=== PATIENT | male | born 1985 | race Caucasian/White ===

== ENCOUNTER 2021-04-26 17:29 | Emergency (ER) | payer SELFPAY ==
[2021-04-26 18:38] LABS: Urine Blood Trace-intact (Negative); Urine Glucose Negative (Negative); Urine Protein Negative (Negative)
[2021-04-26 18:49] LABS: Urine Bacteria <20 /HPF (NONE SEEN); Urine RBC <5 /HPF (NONE SEEN)
[2021-04-26 18:50] LABS: Urine Mucus 1+ /HPF (NONE SEEN)
[2021-04-26 19:00] LABS: Barbiturates NEGATIVE (NEGATIVE); Benzodiazepines NEGATIVE (NEGATIVE); Cocaine NEGATIVE (NEGATIVE); METHAMPHETAM POSITIVE (NEGATIVE); Methadone NEGATIVE (NEGATIVE); Opiates NEGATIVE (NEGATIVE); Phencyclidine NEGATIVE (NEGATIVE); THC Cannibis NEGATIVE (NEGATIVE)
[2021-04-26 19:01] LABS: Absolute Lymphocytes (CBC) 1.9 K/uL (0.7-4.9); Basophils % 0.7 % (0-1.3); Hematocrit 44.6 % (39.6-49.0); MPV 7.5 fL (7.6-11.3); RBC Red Blood Cell Count 4.63 M/uL (4.33-5.43)
--- NOTE | 2021-04-26 19:02 | RAD REPORT ---
EXAM DESCRIPTION: RAD - Chest Single View - 04/26/2021 6:34 pm CLINICAL HISTORY: COUGH COMPARISON: None TECHNIQUE: AP portable chest image was obtained 04/26/2021 6:34 pm . FINDINGS: Lungs are clear. Heart and vasculature are normal. No measurable pleural effusion and no p neumothorax. No acute bony abnormality seen. No acute aortic findings suspected. IMPRESSION: No acute cardiopulmonary process.
[2021-04-26 19:20] LABS: ALT/SGPT 66 U/L (12-78); AST/SGOT 29 U/L (15-37); Albumin 3.9 g/dL (3.4-5.0); Alkaline Phosphatase 70 U/L (45-117); BUN Blood Urea Nitrogen 10 mg/dL (7-18); Bicarbonate 28 mmol/L (21-32); Bilirubin Direct < 0.1 mg/dL (0-0.2); Bilirubin Total 0.3 mg/dL (0.2-1.0); Glucose Level 98 mg/dL (74-106); Potassium 3.9 mmol/L (3.5-5.1); Protein, Total 7.2 g/dL (6.4-8.2); Sodium Level 141 mmol/L (136-145)
[2021-04-26] MEDS ORDERED: CEFTRIAXONE 1000 MG/VIAL ONE (19:35)
[2021-04-26 19:48] LABS: Protime INR 0.91
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
[2021-04-26 20:07] VITALS: BP 120/80; TEMP 97.2; O2SAT 97
--- NOTE | 2021-04-27 16:44 | EKG ---
Test Date: 2021-04-26 Test Time: 18:38:13 [employer] Analyst: CASTRO MEASUREMENT RESULTS: Intervals: Rate: 75 CO: 146 QRSD: 88 QT: 370 QTc: 413 [place]: P: 70 CO: 146 QRS: 76 T: 58 INTERPRETIVE STATEMENTS: Normal sinus rhythm Normal ECG No previous ECG available for comparison Electronically Signed On 04-27-21 16:42:49 CDT by Kasi Jaimes
== END 2021-04-26 20:01 | disposition home or self-care (01) ==
LOC: ER 17:29
DX: N39.0 Urinary tract infection, site not specified (principal); J06.9 Acute upper respiratory infection, unspecified; F15.10 Other stimulant abuse, uncomplicated; F17.210 Nicotine dependence, cigarettes, uncomplicated; Z20.822 Contact with and (suspected) exposure to COVID-19
CPT/HCPCS: 36415; 71045; 80048; 80076; 80307; 80320; 80329; 81003; 81015; 85025; 85610; 85730; 87086; 87088; 93005; 96374; 99284; U0003

== ENCOUNTER 2021-04-26 20:46 | Emergency (ER) | payer SELFPAY ==
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
--- NOTE | 2021-04-26 22:22 | EDPHYS ---
Physician Documentation [facility] Name: Elvin Cox Age: 35 yrs Sex: Male : 1985 Arrival Date: 04/26/2021 Time: 20:49 Bed Treatment Private MD: KYLER Physician Germain Garza HPI: 04/26 22:19 This 35 yrs old Male presents to ER via Ambulatory with complaints of ma2 Suicidal Ideation. 22:19 The patient presents to the emergency department with paranoia, psychosis. Onset: The ma2 symptoms/episode began/occurred suddenly, 1 hour(s) ago. Associated signs and symptoms: Pertinent negatives: chest pain, delusions, hallucinations, shortness of breath, suicide ideation. Severity of symptoms: At their worst the symptoms were severe in the emergency department the symptoms are unchanged. The patient has experienced similar episodes in the past. Patient was in the ER, just got discharged presented with cough Covid was negative diagnosed with bronchitis, however while in the waiting room he stated that he has suicidal thoughts would like to kill himself, he was positive for methamphetamine, has been diagnosed with paranoia schizophrenia. He is high risk, prior suicide attempt in the past. Police brought him and put him on ANTONIO, however patient is voluntary and would like to be transferred for a psych care.. Historical: - Allergies: 21:11 No Known Allergies; df1 - Home Meds: 21:11 Seroquel 300 mg Oral tab 1 tab once daily [Active]; gabapentin 600 mg oral Tb24 three df1 times a day [Active]; - PMHx: 21:11 Paranoid Schizophrenia; df1 - PSHx: 21:11 None; df1 - Immunization history:: Adult Immunizations up to date, Client reports receiving the 2nd dose of the Covid vaccine. - Social history:: Smoking status: Patient reports the use of cigarette tobacco products, smokes one pack cigarettes per day. Patient uses alcohol, on a daily basis. street drugs, marijuana, Methamphetamine (Meth). - Family history:: not pertinent. ROS: 22:19 Constitutional: Negative for fever, chills, and weight loss. ma2 22:19 All other systems are negative. Exam: 22:19 Constitutional: This is a well developed, well nourished patient who is awake, alert, ma2 and in no acute distress. Head/Face: Normocephalic, atraumatic. Eyes: Pupils equal round and reactive to light, extra-ocular motions intact. Lids and lashes normal. Conjunctiva and sclera are non-icteric and not injected. Cornea within normal limits. Periorbital areas with no swelling, redness, or edema. ENT: Nares patent. No nasal discharge, no septal abnormalities noted. Tympanic membranes are normal and external auditory canals are clear. Oropharynx with no redness, swelling, or masses, exudates, or evidence of obstruction, uvula midline. Mucous membranes moist. Neck: Trachea midline, no thyromegaly or masses palpated, and no cervical lymphadenopathy. Supple, full range of motion without nuchal rigidity, or vertebral point tenderness. No Meningismus. Chest/axilla: Normal chest wall appearance and motion. Nontender with no deformity. No lesions are appreciated. Cardiovascular: Regular rate and rhythm with a normal S1 and S2. No gallops, murmurs, or rubs. Normal PMI, no JVD. No pulse deficits. Respiratory: Lungs have equal breath sounds bilaterally, clear to auscultation and percussion. No rales, rhonchi or wheezes noted. No increased work of breathing, no retractions or nasal flaring. Abdomen/GI: Soft, non-tender, with normal bowel sounds. No distension or tympany. No guarding or rebound. No evidence of tenderness throughout. Skin: Warm, dry with normal turgor. Normal color with no rashes, no lesions, and no evidence of cellulitis. MS/ Extremity: Pulses equal, no cyanosis. Neurovascular intact. Full, normal range of motion. Neuro: Awake and alert, GCS 15, oriented to person, place, time, and situation. Cranial nerves II-XII grossly intact. Motor strength 5/5 in all extremities. Sensory grossly intact. Cerebellar exam normal. Normal gait. 22:19 Psych: Behavior/mood is pleasant, cooperative, depressed, Affect is flat, Oriented to person, place, time, Patient having thoughts of suicide. Judgement / Insight is impaired. Vital Signs: 21:09 BP 163 / 93; Pulse 76; Resp 18; Temp 98.4; Pulse Ox 98% on R/A; Weight 95.25 kg; Height df1 6 ft. 1 in. (185.42 cm); Pain 0/10; 04/27 04:00 BP 145 / 83; Pulse 82; Resp 18; Pulse Ox 99% ; lh3 05:05 BP 135 / 83; Pulse 63; Resp 18; Temp 98.2; Pulse Ox 98% on R/A; lh3 07:52 BP 140 / 89; Pulse 80; Resp 20; Temp 98.8(TE); Pulse Ox 95% on R/A; kh1 04/26 21:09 Body Mass Index 27.71 (95.25 kg, 185.42 cm) df1 MDM: 04/26 21:38 Patient medically screened. ma2 22:19 Differential diagnosis: drug withdrawal. acute psychotic break, depression, psychosis ma2 secondary to non-compliance. 22:21 Data reviewed: vital signs, nurses notes. Counseling: I had a detailed discussion with ma2 the patient and/or guardian regarding: the historical points, exam findings, and any diagnostic results supporting the discharge/admit diagnosis, the presence of at least one elevated blood pressure reading (>120/80) during this emergency department visit, the need for outpatient follow up. Response to treatment: There is no appreciated change of the patient's symptoms at this time. 04/27 08:13 Data interpreted: bus driver/monitor: not applicable for this patient encounter. rate is precious 80 beats/min, rhythm is regular, Pulse oximetry: on room air is 95 %. Test interpretation: by ED physician or midlevel provider: ECG. 04/26 21:34 Order name: Acetaminophen; Complete Time: 04:19 04/26 21:34 Order name: Basic Metabolic Panel; Complete Time: 04:19 04/26 21:34 Order name: CBC with Diff; Complete Time: 04:19 04/26 21:34 Order name: ETOH Level; Complete Time: 04:19 04/26 21:34 Order name: Hepatic Function; Complete Time: 04:19 04/26 21:34 Order name: PT-INR; Complete Time: 04:19 04/26 21:34 Order name: Ptt, Activated; Complete Time: 04:19 ma2 04/26 21:34 Order name: Salicylate; Complete Time: 04:19 ma2 04/26 21:34 Order name: Urine Drug Screen; Complete Time: 04:19 04/26 21:34 Order name: EKG; Complete Time: 21:34 ma2 04/26 21:34 Order name: EKG - Nurse/Tech; Complete Time: 00:00 ma2 04/26 22:24 Order name: Urine Dipstick-Ancillary; Complete Time: 04:19 EDMS 04/27 00:11 Order name: SARS-COV-2 RT PCR; Complete Time: 04:19 EDMS 04/26 21:34 Order name: IV Saline Lock; Complete Time: 23:38 ma2 04/26 21:34 Order name: Labs collected and sent; Complete Time: 23:38 ma2 04/26 21:34 Order name: Suicide Screening ([place]); Complete Time: 23:39 ma2 04/26 21:34 Order name: Urine Dipstick-Ancillary (obtain specimen); Complete Time: 23:39 ma2 04/26 21:34 Order name: Urine Test (obtain specimen); Complete Time: 23:39 ma2 Administered Medications: No medications were administered Disposition Summary: 04/27/21 08:12 Discharge Ordered Location: Home precious Problem: new(04/27/21 08:12) precious Symptoms: have improved(04/27/21 08:12) precious Condition: Stable(04/27/21 08:12) precious Diagnosis - Schizophrenia, unspecified precious - Paranoid schizophrenia precious - Suicidal ideations - resolved(04/27/21 08:12) precious - Adverse effect of amphetamines precious - Abuse of other non-psychoactive substances precious Followup: precious - With: Private Physician - When: 2 - 3 days - Reason: Recheck today's complaints, Continuance of care, Re-evaluation by your physician Followup: precious - With: Sree Ordonez MD - When: 2 - 3 days - Reason: Recheck today's complaints, Re-evaluation by your physician Discharge Instructions: - Discharge Summary Sheet precious - Finding Treatment for Addiction precious - Substance Use Disorder precious - Schizophrenia precious - Supporting Someone With an Addiction precious - Suicidal Feelings: How to Help Yourself precious - Helping Someone Who is Suicidal precious - Supporting Someone With Schizophrenia precious - Managing Schizophrenia precious Forms: - Medication Reconciliation Form precious - Thank You Letter precious - Antibiotic Education precious - Prescription Opioid Use precious Signatures: Dispatcher [employer] Germain Burnette MD MD cha Alzahri, Mohammad, MD MD [facility] Desi Randle df1 Corrections: (The following items were deleted from the chart) 00:11 04/26 23:00 CORONAVIRUS+MR.LAB.BRZ ordered. EDMS EDMS 04/27 08:10 04/26 22:[address] 04/27 08:10 04/26 22:21 Psych Facility [address] 04/27 08:10 04/26 22:21 Higher level of care [address] 04/27 08:10 04/26 22:[address] 04/27 08:10 04/26 22:[address] 04/27 08:10 04/26 22:21 are unchanged [address] 04/27 08:10 04/26 22:21 Suicidal ideations [address]
[2021-04-26 22:25] LABS: Urine Blood Trace-intact (Negative); Urine Glucose Negative (Negative); Urine Protein Negative (Negative); Urine Specific Gravity 1.015 (1.005-1.030); Urine pH 6.5 (5.0-7.0)
[2021-04-26 22:55] LABS: Barbiturates NEGATIVE (NEGATIVE); Benzodiazepines NEGATIVE (NEGATIVE); Cocaine NEGATIVE (NEGATIVE); METHAMPHETAM POSITIVE (NEGATIVE); Methadone NEGATIVE (NEGATIVE); Opiates NEGATIVE (NEGATIVE); Phencyclidine NEGATIVE (NEGATIVE); THC Cannibis NEGATIVE (NEGATIVE)
[2021-04-26 23:11] LABS: Absolute Lymphocytes (CBC) 1.8 K/uL (0.7-4.9); Basophils % 0.7 % (0-1.3); Hematocrit 42.3 % (39.6-49.0); Lymphocytes % 19.1 % (15.3-44.8); MPV 7.4 fL (7.6-11.3)
[2021-04-26 23:12] LABS: Protime INR 0.9
[2021-04-26 23:28] LABS: ALT/SGPT 66 U/L (12-78); AST/SGOT 31 U/L (15-37); Albumin 3.9 g/dL (3.4-5.0); Alkaline Phosphatase 63 U/L (45-117); BUN Blood Urea Nitrogen 9 mg/dL (7-18); Bicarbonate 27 mmol/L (21-32); Bilirubin Direct < 0.1 mg/dL (0-0.2); Bilirubin Total 0.4 mg/dL (0.2-1.0); Glucose Level 96 mg/dL (74-106); Protein, Total 7.3 g/dL (6.4-8.2); Sodium Level 139 mmol/L (136-145)
[2021-04-27 08:27] VITALS: BP 140/89; TEMP 98.8; O2SAT 95
--- NOTE | 2021-04-27 16:43 | EKG ---
Test Date: 2021-04-26 Test Time: 23:55:33 Lab Director: BETTY MEASUREMENT RESULTS: Intervals: Rate: 73 MS: 156 QRSD: 90 QT: 378 QTc: 416 [place]: P: 74 MS: 156 QRS: 88 T: 69 INTERPRETIVE STATEMENTS: Normal sinus rhythm Normal ECG Compared to ECG 04/26/2021 18:38:13 No significant changes Electronically Signed On 04-27-21 16:42:42 CDT by Kasi Jaimes
== END 2021-04-27 08:17 | disposition home or self-care (01) ==
LOC: ER 20:46
DX: F20.0 Paranoid schizophrenia (principal); F15.10 Other stimulant abuse, uncomplicated; T43.625A Adverse effect of amphetamines, initial encounter; F17.210 Nicotine dependence, cigarettes, uncomplicated; Z20.822 Contact with and (suspected) exposure to COVID-19
CPT/HCPCS: 36415; 80048; 80076; 80307; 80320; 80329; 81003; 85025; 85610; 85730; 93005; 99283; U0003

== ENCOUNTER 2021-04-27 12:14 | Emergency (ER) | payer SELFPAY ==
--- NOTE | 2021-04-27 12:57 | EDPHYS ---
Physician Documentation [facility] Name: Elvin Cox Age: 35 yrs Sex: Male : 1985 Arrival Date: 04/27/2021 Time: 12:16 Bed 10 Private MD: ED Physician Germain Garaz HPI: 04/27 13:14 This 35 yrs old Male presents to ER via Ambulatory with complaints of Psych precious Problem. 13:14 The patient presents to the emergency department with anxiety, paranoia, suicide precious ideation, but the patient has no formulated plan. Onset: The symptoms/episode began/occurred 3 day(s) ago. Past psychiatric history: Prior diagnosis: schizophrenia, Psychiatric medications include: none, Primary psychiatric physician: the patient does not have a primary psychiatric physician, the patient has had a prior suicide gesture. Associated signs and symptoms: Pertinent positives; delusions, suicide ideation. Severity of symptoms: At their worst the symptoms were moderate in the emergency department the symptoms are unchanged. The patient has not experienced similar symptoms in the past. Historical: - Allergies: 12:25 No Known Allergies; jl7 - Home Meds: 12:25 Seroquel 300 mg Oral tab 1 tab once daily [Active]; gabapentin 600 mg Oral Tb24 three jl7 times a day [Active]; - PMHx: 12:25 Paranoid Schizophrenia; jl7 - PSHx: 12:25 None; jl7 - Immunization history:: Adult Immunizations up to date, Client reports receiving the Bridger \T\ Bridger single-dose vaccine. - Social history:: Smoking status: Patient reports the use of cigarette tobacco products, smokes one pack cigarettes per day. Patient uses alcohol, on a daily basis. [address], Methamphetamine (Meth). - Family history:: not pertinent. ROS: 13:14 Constitutional: Negative for fever, chills, and weight loss, Eyes: Negative for injury, precious pain, redness, and discharge, ENT: Negative for injury, pain, and discharge, Neck: Negative for injury, pain, and swelling, Cardiovascular: Negative for chest pain, palpitations, and edema, Respiratory: Negative for shortness of breath, cough, wheezing, and pleuritic chest pain, Abdomen/GI: Negative for abdominal pain, nausea, vomiting, diarrhea, and constipation, Back: Negative for injury and pain, : Negative for injury, bleeding, discharge, and swelling, MS/Extremity: Negative for injury and deformity, Skin: Negative for injury, rash, and discoloration, Neuro: Negative for headache, weakness, numbness, tingling, and seizure, Allergy/Immunology: Negative for hives, rash, and allergies, Endocrine: Negative for neck swelling, polydipsia, polyuria, polyphagia, and marked weight changes, Hematologic/Lymphatic: Negative for swollen nodes, abnormal bleeding, and unusual bruising. 13:14 Psych: Positive for suicidal ideation. Exam: 13:14 Constitutional: This is a well developed, well nourished patient who is awake, alert, precious and in no acute distress. Head/Face: Normocephalic, atraumatic. Eyes: Pupils equal round and reactive to light, extra-ocular motions intact. Lids and lashes normal. Conjunctiva and sclera are non-icteric and not injected. Cornea within normal limits. Periorbital areas with no swelling, redness, or edema. ENT: Nares patent. No nasal discharge, no septal abnormalities noted. Tympanic membranes are normal and external auditory canals are clear. Oropharynx with no redness, swelling, or masses, exudates, or evidence of obstruction, uvula midline. Mucous membranes moist. Neck: Trachea midline, no thyromegaly or masses palpated, and no cervical lymphadenopathy. Supple, full range of motion without nuchal rigidity, or vertebral point tenderness. No Meningismus. Chest/axilla: Normal chest wall appearance and motion. Nontender with no deformity. No lesions are appreciated. Cardiovascular: Regular rate and rhythm with a normal S1 and S2. No gallops, murmurs, or rubs. Normal PMI, no JVD. No pulse deficits. Respiratory: Lungs have equal breath sounds bilaterally, clear to auscultation and percussion. No rales, rhonchi or wheezes noted. No increased work of breathing, no retractions or nasal flaring. Abdomen/GI: Soft, non-tender, with normal bowel sounds. No distension or tympany. No guarding or rebound. No evidence of tenderness throughout. Back: No spinal tenderness. No costovertebral tenderness. Full range of motion. Male : Normal genitalia with no discharge or lesions. Skin: Warm, dry with normal turgor. Normal color with no rashes, no lesions, and no evidence of cellulitis. MS/ Extremity: Pulses equal, no cyanosis. Neurovascular intact. Full, normal range of motion. Neuro: Awake and alert, GCS 15, oriented to person, place, time, and situation. Cranial nerves II-XII grossly intact. Motor strength 5/5 in all extremities. Sensory grossly intact. Cerebellar exam normal. Normal gait. 13:14 Psych: Behavior/mood is pleasant, Affect is calm, Oriented to person, place, time, Patient has no thoughts/intents to harm self or others. Judgement / Insight is impaired. Memory is normal. Delusions/hallucinations are present and described as people are trying to kill me, so i will kill myself. Vital Signs: 12:24 BP 138 / 82; Pulse 102; Resp 17; Temp 97.6; Pulse Ox 98% ; Weight 95.25 kg; Height 6 7 ft. 1 in. (185.42 cm); Pain 0/10; 12:35 BP 138 / 82; Pulse 102; Resp 17; Temp 97.6; Pulse Ox 98% on R/A; kh1 22:00 BP 127 / 83; Pulse 88; Resp 16; Temp 98.6; Pulse Ox 97% ; Pain 0/10; dc2 04/28 05:00 BP 125 / 76; Pulse 74; Resp 18; Pulse Ox 99% ; Pain 0/10; dc2 07:42 BP 126 / 82; Pulse 72; Resp 17; Temp 98.4; Pulse Ox 100% on R/A; es2 04/27 12:24 Body Mass Index 27.71 (95.25 kg, 185.42 cm) 7 MDM: 04/27 12:34 Patient medically screened. precious 13:19 Differential diagnosis: drug withdrawal. depression, psychosis secondary to precious non-compliance. Data reviewed: vital signs, nurses notes, lab test result(s), EKG. Data interpreted: desk monitor: not applicable for this patient encounter. rate is 102 beats/min, Pulse oximetry: on room air is 98 %. Test interpretation: by ED physician or midlevel provider: ECG. Counseling: I had a detailed discussion with the patient and/or guardian regarding: the historical points, exam findings, and any diagnostic results supporting the discharge/admit diagnosis, lab results, radiology results, the need to transfer to another facility, for higher level of care, [facility] does not immediately have the required specialist. 04/27 12:34 Order name: Acetaminophen; Complete Time: 08:08 precious 04/27 12:34 Order name: Basic Metabolic Panel; Complete Time: 08:08 precious 04/27 12:34 Order name: CBC with Diff; Complete Time: 08:08 precious 04/27 12:34 Order name: ETOH Level; Complete Time: 08:08 precious 04/27 12:34 Order name: Hepatic Function; Complete Time: 08:08 precious 04/27 12:34 Order name: PT-INR; Complete Time: 08:08 precious 04/27 12:34 Order name: Ptt, Activated; Complete Time: 08:08 precious 04/27 12:34 Order name: Salicylate; Complete Time: 08:08 precious 04/27 12:34 Order name: Urine Drug Screen; Complete Time: 08:08 precious 04/27 13:32 Order name: Urine Dipstick-Ancillary; Complete Time: 08:08 EDWV 04/27 12:34 Order name: EKG; Complete Time: 12:35 [facility] 04/27 12:34 Order name: EKG - Nurse/Tech; Complete Time: 13:16 [facility] 04/27 12:34 Order name: IV Saline Lock; Complete Time: 13:16 [facility] 04/27 12:34 Order name: Labs collected and sent; Complete Time: 13:16 [facility] 04/27 12:34 Order name: Suicide Screening ([place]); Complete Time: 13:16 [facility] 04/27 12:34 Order name: Urine Dipstick-Ancillary (obtain specimen); Complete Time: 17:21 [facility] Administered Medications: 13:21 Drug: NS 0.9% 1000 ml Route: IV; Rate: 1 bolus; Site: right antecubital; kh1 14:30 Follow up: IV Status: Completed infusion; IV Intake: 1000ml dc2 15:08 Drug: LORazepam 2 mg Route: IVP; Site: right antecubital; kh1 19:15 Follow up: Response: Patient is sedated dc2 15:09 Drug: Geodon (ziprasidone) 20 mg Route: IM; Site: left deltoid; kh1 19:15 Follow up: Response: Patient is sedated dc2 04/28 05:52 Drug: LORazepam 2 mg Route: IVP; Site: right antecubital; dc2 06:14 Follow up: Response: Anxiety decreased; Other dc2 06:45 Follow up: Response: Patient is sedated dc2 Disposition Summary: 04/27/21 12:56 Transfer Ordered Transfer Location: Psych Facility precious Reason: Higher level of care precious Condition: Fair precious Problem: new precious Symptoms: have improved precious Accepting Physician: to psych(04/28/21 09:55) es2 Diagnosis - Paranoid schizophrenia precious - Suicidal ideations precious - Adverse effect of amphetamines precious - Other psychoactive substance abuse precious Forms: - Medication Reconciliation Form precious - SBAR form precious Signatures: Dispatcher [employer] EDGermain Gómez MD MD cha Leal, Jahala RN RN jl7 Angelina Pereira 1 Hanna Pino RN RN dc2 Shanae Pickett RN RN es2 Corrections: (The following items were deleted from the chart) 09:55 04/27 12:56 to psych precious es2
--- NOTE | 2021-04-27 12:57 | ER ---
Nurse's Notes [facility] Name: Elvin Cox Age: 35 yrs Sex: Male : 1985 Arrival Date: 04/27/2021 Time: 12:16 Bed 10 Private MD: Diagnosis: Paranoid schizophrenia;Suicidal ideations;Adverse effect of amphetamines;Other psychoactive substance abuse Presentation: 04/27 12:24 Chief complaint: Patient states: Hearing voices "Think people is out to kill me." jl7 Reports SI, denies HI. Coronavirus screen: At this time, the client does not indicate any symptoms associated with coronavirus-19. Ebola Screen: No symptoms or risks identified at this time. Initial Sepsis Screen: Does the patient meet any 2 criteria? No. Patient's initial sepsis screen is negative. Does the patient have a suspected source of infection? No. Patient's initial sepsis screen is negative. Risk Assessment: Do you want to hurt yourself or someone else? Patient reports desire/thoughts of hurting themselves or someone else. Provider notified. Onset of symptoms is unknown. Care prior to arrival: None. 12:24 Method Of Arrival: Ambulatory jl7 12:24 Acuity: JUAN A 2 jl7 Triage Assessment: 12:25 General: Appears in no apparent distress. uncomfortable, Behavior is cooperative, jl7 anxious. Pain: Denies pain. Historical: - Allergies: 12:25 No Known Allergies; jl7 - Home Meds: 12:25 Seroquel 300 mg Oral tab 1 tab once daily [Active]; gabapentin 600 mg Oral Tb24 three jl7 times a day [Active]; - PMHx: 12:25 Paranoid Schizophrenia; jl7 - PSHx: 12:25 None; jl7 - Immunization history:: Adult Immunizations up to date, Client reports receiving the Bridger \\T\\ Bridger single-dose vaccine. - Social history:: Smoking status: Patient reports the use of cigarette tobacco products, smokes one pack cigarettes per day. Patient uses alcohol, on a daily basis. [address], Methamphetamine (Meth). - Family history:: not pertinent. Screenin:36 Abuse screen: Denies threats or abuse. Nutritional screening: No deficits noted. On no kh1 prescribed diet Difficulty chewing/swallowing? No. Tuberculosis screening: No symptoms or risk factors identified. Never had TB. Possible symptoms: None Risk factors: None. Fall Risk None identified. Assessment: 12:34 General: Appears in no apparent distress. uncomfortable, Behavior is calm, cooperative, kh1 quiet. Pain: Denies pain. Neuro: No deficits noted. Level of Consciousness is awake, alert, obeys commands, Oriented to person, place, time, situation, Appropriate for age [employer] are equal bilaterally Moves all extremities. Gait is steady, Speech is normal, Facial symmetry appears normal. 14:00 Reassessment: Patient appears in no apparent distress at this time. No changes from 1 previously documented assessment. Patient and/or family updated on plan of care and expected duration. Pain level reassessed. Patient states symptoms have not improved. 15:10 Reassessment: Pt became agitated. Jumped out of bed asking for security. States kh1 somebody is coming to kill him. MD made aware. mEDICATED ORDERED. 17:30 Reassessment: Sleeping quietly in bed. No acute distress noted. [facility] 19:05 Reassessment: Report received, patient resting with eyes closed, resp even and tc5 unlabored. Pt not wakened at this time. Continue to monitor. In nad. 20:00 Reassessment: No changes from previously documented assessment. Patient and/or family dc2 updated on plan of care and expected duration. Pain level reassessed. Patient is alert, oriented x 3, equal unlabored respirations, skin warm/dry/pink. 22:00 Reassessment: Pt easily wakened and cooperative for Vital Signs. Afebrile, when asked dc2 about needs, pt states "I'm good" and rolls back to sleep placing cover over head. Continue to monitor . Pt in nad. 22:00 General: Appears in no apparent distress. comfortable, Behavior is calm, cooperative. dc2 Pain: Denies pain. Respiratory: No deficits noted. GI: No deficits noted. : Urine is clear. 23:00 Reassessment: No changes from previously documented assessment. Resting with eyes dc2 closed, resp even and unlabored, pt not wakened . In nad. 04/28 00:00 Reassessment: Patient appears in no apparent distress at this time. No changes from dc2 previously documented assessment. 01:00 Reassessment: No changes from previously documented assessment. General: Appears in no dc2 apparent distress. 02:00 Reassessment: No changes from previously documented assessment. dc2 03:00 Reassessment: No changes from previously documented assessment. dc2 04:57 Reassessment: Pt out to hallway stating " I don't want them to come here, I don't want dc2 any visitors." Pt easily directed back into room, emotional support provided. Pt allow for vs, and return to sleep. Continue to monitor. 05:20 Reassessment: Pt to [facility] " I'm just checking that no one is here to visit me ?" dc2 Reassurance given that there is no one here and that security is aware of patients wishes regarding visitors and that no one would be allowed back. Pt states he still feels suicidal and has a plan but at this time cannot tell me the plan. Pt offered drink snack, accept a gatorade. 800ml yellow urine emptied at this time. Pt return to sleep . Continue to monitor. 05:42 Reassessment:. dc2 05:46 Reassessment: Pt calling outloud asking about visitors. Assured pt there were to be no dc2 visitors. Pt becoming more agitated. Provider informed and will medicate with ativan 2mg IV. 06:14 Reassessment: Pt resting with eyes closed, resp even and unlabored, appears calmer. dc2 Continue to monitor. 07:04 Reassessment: Report given to SREEKANTH Jones. dc2 Psych: 04/27 12:38 [place] Suicide Severity Screening: In the past month, have you wished you were kh1 or wished you could go to sleep and not wake up? Patient responds "No." "In the past month, have you actually had any thoughts of killing yourself?" Patient responds "yes." "In your lifetime, have you ever done anything, started to do anything, or prepared to do anything to end your life?" Patient responds "no.". Subjective: Patient's mood is sad, Delusions are denied, Hallucinations are auditory, Having thoughts of suicide. Denies suicidal plan. Objective: Patient is cooperative, Speech is normal, Affect is flat. Interventions: Removed personal items and placed in bag. Patient placed in hospital gown. Searched person for dangerous items. Safety Checks: Personal items have been removed. Door is open. Patient uses methamphetamines unknown few times a week. 12:39 Commitment: Patient will be a voluntary commitment. 1 Vital Signs: 12:24 BP 138 / 82; Pulse 102; Resp 17; Temp 97.6; Pulse Ox 98% ; Weight 95.25 kg; Height 6 jl7 ft. 1 in. (185.42 cm); Pain 0/10; 12:35 BP 138 / 82; Pulse 102; Resp 17; Temp 97.6; Pulse Ox 98% on R/A; kh1 22:00 BP 127 / 83; Pulse 88; Resp 16; Temp 98.6; Pulse Ox 97% ; Pain 0/10; dc2 04/28 05:00 BP 125 / 76; Pulse 74; Resp 18; Pulse Ox 99% ; Pain 0/10; dc2 07:42 BP 126 / 82; Pulse 72; Resp 17; Temp 98.4; Pulse Ox 100% on R/A; es2 04/27 12:24 Body Mass Index 27.71 (95.25 kg, 185.42 cm) jl7 ED Course: 04/27 12:16 Patient arrived in ED. as 12:25 Triage completed. jl7 12:25 Arm band placed on right wrist. 7 12:34 Germain Garza MD is Attending Physician. [facility] 12:34 Angelina Pereira is Primary Nurse. kh1 12:36 No provider procedures requiring assistance completed. kh1 12:39 Patient has correct armband on for positive identification. library monitor on. Pulse kh1 ox on. NIBP on. 13:11 spoke with Margaret at [facility], pt is on waiting list for a [facility] bed. bd 13:16 Acetaminophen Sent. kh1 13:17 Basic Metabolic Panel Sent. kh1 13:17 CBC with Diff Sent. kh1 13:17 ETOH Level Sent. kh1 13:17 Hepatic Function Sent. kh1 13:17 PT-INR Sent. kh1 13:17 Ptt, Activated Sent. kh1 13:17 Salicylate Sent. kh1 13:17 Urine Drug Screen Sent. kh1 13:21 Inserted saline lock: 20 gauge in right antecubital area, using aseptic technique. kh1 Blood collected. 13:27 Acetaminophen Sent. kh1 13:27 Basic Metabolic Panel Sent. kh1 13:27 CBC with Diff Sent. kh1 13:27 ETOH Level Sent. kh1 13:27 Hepatic Function Sent. kh1 13:27 PT-INR Sent. kh1 13:27 Ptt, Activated Sent. kh1 13:27 Salicylate Sent. kh1 13:27 Urine Drug Screen Sent. kh1 19:10 Report received from SREEKANTH Alfaro. dc2 19:10 One-on-one care X 15 minutes. dc2 19:15 No apparent distress. Appears to be sleeping. transfer approval from receiving facility.dc2 19:15 Patient has correct armband on for positive identification. Bed in low position. Side dc2 rails up X 1. Patient is placed in psych hold. One-on-one care X 15 minutes. 20:00 No apparent distress. Resting quietly. Appears to be sleeping. dc2 20:00 Safety Checks: Personal items have been removed. The door is not opened, nor is patient dc2 placed in a hallway bed/chair. due to or because: glass door Sitter present at this time. 20:00 No apparent distress. Appears to be sleeping. transfer approval from receiving ne2 facility. Safety Checks: Personal items have been removed. The door is not opened, nor is patient placed in a hallway bed/chair. due to or because: glass door for observation Sitter present at this time. 21:00 No apparent distress. Appears to be sleeping. dc2 22:00 No apparent distress. Resting quietly. Appears to be sleeping. Easily wakened for Vital dc2 signs and assessment. 22:00 Safety Checks: Personal items have been removed. The door is not opened, nor is patient dc2 placed in a hallway bed/chair. due to or because: Glass door for visualization Sitter present at this time. 23:00 No apparent distress. Appears to be sleeping. transfer approval from receiving ne2 facility. Safety Checks: Personal items have been removed. The door is not opened, nor is patient placed in a hallway bed/chair. Sitter present at this time. 04/28 00:00 No apparent distress. Appears to be sleeping. transfer approval from receiving facility.dc2 00:00 Safety Checks: Personal items have been removed. The door is not opened, nor is patient dc2 placed in a hallway bed/chair. Glass door for observation Sitter present at this time. 01:00 No apparent distress. Appears to be sleeping. transfer approval from receiving dc2 facility. Safety Checks: Personal items have been removed. The door is not opened, nor is patient placed in a hallway bed/chair. Glass door for observation. 01:00 Bed in low position. Side rails up X 1. dc2 02:00 Appears to be sleeping. transfer approval from receiving facility. dc2 02:00 Safety Checks: Personal items have been removed. The door is not opened, nor is patient dc2 placed in a hallway bed/chair. Glass door Sitter present at this time. 04:00 No apparent distress. Appears to be sleeping. transfer approval from receiving dc2 facility. Safety Checks: Personal items have been removed. The door is not opened, nor is patient placed in a hallway bed/chair. glass door. 05:20 Patient requests liquids. dc2 06:00 No apparent distress. Appears to be sleeping. dc2 06:00 No apparent distress. Appears to be sleeping. Safety Checks: Personal items have been dc2 removed. The door is not opened, nor is patient placed in a hallway bed/chair. Glass door Sitter present at this time. 08:00 called for nurse to nurse report. em1 08:06 psychiatric doctor paged to set up Doc to Doc. em1 09:49 IV discontinued, intact, bleeding controlled, No redness/swelling at site. Pressure es2 dressing applied. Administered Medications: 04/27 13:21 Drug: NS 0.9% 1000 ml Route: IV; Rate: 1 bolus; Site: right antecubital; kh1 14:30 Follow up: IV Status: Completed infusion; IV Intake: 1000ml dc2 15:08 Drug: LORazepam 2 mg Route: IVP; Site: right antecubital; kh1 19:15 Follow up: Response: Patient is sedated dc2 15:09 Drug: Geodon (ziprasidone) 20 mg Route: IM; Site: left deltoid; kh1 19:15 Follow up: Response: Patient is sedated dc2 04/28 05:52 Drug: LORazepam 2 mg Route: IVP; Site: right antecubital; dc2 06:14 Follow up: Response: Anxiety decreased; Other dc2 06:45 Follow up: Response: Patient is sedated dc2 Intake: 04/27 14:30 IV: 1000ml; Total: 1000ml. dc2 Outcome: 12:56 ER care complete, transfer ordered by MD. lang 04/28 09:50 Transferred by ground EMS es2 Condition: stable Discharge instructions given to EMS. 09:55 Patient left the ED. es2 Signatures: Kaykay Mendoza Corey, MD MD cha Martinez, Eusebio Wooten em1 Christopher Sierra RN RN jl7 Angelina Pereira kh1 Hanna Pino RN RN ramila2 Shanae Pickett RN RN es2 Caterina Kingston RN RN tc5 Corrections: (The following items were deleted from the chart) 04/27 12:27 12:24 Risk Assessment: Do you want to hurt yourself or someone else? Patient reports no jl7 desire to harm self or others. jl7 17:28 15:09 Reassessment: Patient appears in no apparent distress at this time. No changes kh1 from previously documented assessment. Patient and/or family updated on plan of care and expected duration. Pain level reassessed. Patient states symptoms have not improved. kh1 17:30 17:28 Reassessment: Pt became agitated. Jumped out of bed asking for security. States kh1 somebody is coming to kill him. made aware. mEDICATED ORDERED kh1
[2021-04-27 13:32] LABS: Urine Blood Negative (Negative); Urine Glucose Negative (Negative); Urine Protein Negative (Negative)
[2021-04-27 13:39] LABS: Protime INR 0.91
[2021-04-27 13:43] LABS: Barbiturates NEGATIVE (NEGATIVE); Benzodiazepines NEGATIVE (NEGATIVE); Cocaine NEGATIVE (NEGATIVE); METHAMPHETAM POSITIVE (NEGATIVE); Methadone NEGATIVE (NEGATIVE); Opiates NEGATIVE (NEGATIVE); Phencyclidine NEGATIVE (NEGATIVE); THC Cannibis POSITIVE (NEGATIVE)
[2021-04-27 13:43] LABS: ALT/SGPT 71 U/L (12-78); AST/SGOT 32 U/L (15-37); Alkaline Phosphatase 64 U/L (45-117); BUN Blood Urea Nitrogen 11 mg/dL (7-18); Bicarbonate 26 mmol/L (21-32); Bilirubin Direct 0.1 mg/dL (0-0.2); Bilirubin Total 0.4 mg/dL (0.2-1.0); Glucose Level 103 mg/dL (74-106); Potassium 4.1 mmol/L (3.5-5.1); Protein, Total 7.4 g/dL (6.4-8.2); Sodium Level 139 mmol/L (136-145)
[2021-04-27] MEDS ORDERED: NA CHLORIDE 0.9% 1,000 ML ONE (13:44)
[2021-04-27 14:12] LABS: Absolute Lymphocytes (CBC) 1.4 K/uL (0.7-4.9); Basophils % 0.6 % (0-1.3); Hematocrit 43.3 % (39.6-49.0); Lymphocytes % 13.5 % (15.3-44.8); MPV 7.6 fL (7.6-11.3); RBC Red Blood Cell Count 4.45 M/uL (4.33-5.43)
[2021-04-27] MEDS ORDERED: ZIPRASIDONE MESYLA 20 MG/VIAL IM ONE (15:21)
[2021-04-27] MEDS ORDERED: LORazepam 2 MG/ML VIAL ONE (15:21)
[2021-04-27] MEDS ORDERED: WATER FOR INJ,STERILE 10 ML ONE (15:24)
[2021-04-28] MEDS ORDERED: LORazepam 2 MG/ML VIAL ONE (06:14)
[2021-04-28 10:08] VITALS: BP 126/82; TEMP 98.4; O2SAT 100
== END 2021-04-28 09:55 ==
LOC: ER 12:14
DX: F19.10 Other psychoactive substance abuse, uncomplicated (principal); T43.625A Adverse effect of amphetamines, initial encounter; F20.0 Paranoid schizophrenia; F17.210 Nicotine dependence, cigarettes, uncomplicated
CPT/HCPCS: 36415; 80048; 80076; 80307; 80320; 80329; 81003; 85025; 85610; 85730; 93005; 96361; 96372; 96374; 99285; J3486; J7030